=== PATIENT | female | born 1975 | race African-American/Black ===

== ENCOUNTER 2018-06-16 16:15 | Emergency (ER) | payer OTHER ==
[~2018-06-16 16:15] MED LIST: CIPROFLOXACIN500 M1 PO; NORCO 5-325 TA1 EACH PO; PHENERGAN 25 MG25 M1 PO; PYRIDIUM200 MG PO
== END 2018-06-16 17:03 | disposition left against medical advice (07) ==
LOC: ER 16:15
DX: Z53.21 Procedure and treatment not carried out due to patient leaving prior to being seen by health care provider (principal)